=== PATIENT | female | born 1980 | race Caucasian/White ===

== ENCOUNTER 2019-08-10 00:29 | Emergency (ER) | payer MEDICAID ==
--- NOTE | 2019-08-10 01:21 | ED Physician Documentation ---
History of Present Illness - Stated complaint Stated Complaint: FAST HEART/HEARING THINGS - Chief complaint Chief Complaint: General - History obtained from History obtained from: Patient - History of Present Illness Timing: Today - Additonal information Additional information: 39-year-old female is visiting here from [place] has developed a rapid heart rate. She has clocked her heart rate at about 100 and she is uncertain why this is present. She has had a prior history of SVT with rapid rates up above 150. She is not experiencing that today. She denies any other specific symptoms. She does state that she has had anxiety previously that is caused raising her heart rate. She does state that she does not drink a lot of fluids and she suspects she might be dehydrated. Review of Systems Constitutional: denies: Fever Eyes: denies: Decreased vision Ears: denies: Ear pain Nose: denies: Rhinorrhea / runny nose, Congestion Throat: denies: Sore throat Cardiac: reports: Palpitations. denies: Chest pain / pressure Respiratory: denies: Dyspnea, Cough GI: denies: Abdominal Pain, Nausea, Vomiting : reports: Other (The patient does acknowledge urinary urgency.). denies: Dysuria, Frequency Skin: denies: Rash PD PAST MEDICAL HISTORY - Past Medical History Endocrine/Autoimmune: HyPOthyroidism Psych: Bipolar disorder - Past Surgical History Past Surgical History: Yes Ortho: Other - Present Medications Home Medications: Ambulatory Orders Medication Instructions Recorded Confirmed Divalproex Sodium [Depakote] 08/10/19 Levothyroxine [Synthroid] 08/10/19 Lurasidone HCl [Latuda] 08/10/19 buPROPion [Wellbutrin Sr] 08/10/19 - Allergies Allergies/Adverse Reactions: Allergies Allergy/AdvReac Type Severity Reaction Status Date / Time No Known Drug Allergies Allergy Verified 08/10/19 00:41 - Social History Does the pt smoke?: No Smoking Status: Never smoker PD ED PE NORMAL - Vitals Vital signs reviewed: Yes (Tachycardia to 106 mild hypertension) - General General: Alert and oriented X 3, No acute distress, Well developed/nourished - HEENT HEENT: Atraumatic, PERRL, EOMI - Neck Neck: Supple, no meningeal sign, No bony TTP - Cardiac Cardiac: RRR, No murmur - Respiratory Respiratory: No respiratory distress, Clear bilaterally - Abdomen Abdomen: Normal bowel sounds, Soft, Non tender, Non distended, No organomegaly - Back Back: No CVA TTP, No spinal TTP - Derm Derm: Normal color, Warm and dry, No rash - Extremities Extremities: No deformity, No edema - Neuro Neuro: Alert and oriented X 3, 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, No motor deficit, No sensory deficit, Normal speech Eye Opening: Spontaneous Motor: Obeys Commands Verbal: Oriented GCS Score: 15 - Psych Psych: Normal mood, Other (Affect is flat) Results - Vitals Vitals: Vital Signs - 24 hr 08/10/19 08/10/19 00:33 03:55 Temperature 36.4 C L 36.3 C L Heart Rate 106 H 71 Respiratory 18 20 Rate Blood Pressure 138/79 H 119/64 O2 Saturation 99 100 Oxygen O2 Source Room air - EKG (time done) 0045 Rate: Rate (enter#) (89) Rhythm: NSR Ischemia: Normal ST segments Compare to prior EKG: Old EKG unavailable Computer interpretation: Agree with computer - Labs Labs: Laboratory Tests 08/10/19 03:10 Urine Color YELLOW Urine Clarity CLEAR Urine pH 7.0 Ur Specific [place] 1.020 Urine Protein NEGATIVE Urine Glucose (UA) NEGATIVE Urine Ketones NEGATIVE Urine Occult Blood TRACE-INTA Urine Nitrite NEGATIVE Urine Bilirubin NEGATIVE Urine Urobilinogen 0.2 (NORMAL) Ur Leukocyte Esterase NEGATIVE Ur Microscopic Review NOT INDICATED Urine Culture Comments NOT INDICATED Urine HCG, Qual NEGATIVE Procedures - IVC sono (time) 0237 Bedside IVC sono: IVC measures (cm) (0.93), Dehydration (est 1-2 liter deficit) PD MEDICAL DECISION MAKING - ED course Complexity details: reviewed results, re-evaluated patient, considered dif ferential, d/w patient ED course: 39-year-old female with a sensation of racing heart has an elevated heart rate and she is dehydrated. She is not vomiting and is able to orally hydrate. She is given 2 glasses of water to drink and she is able to produce a urine specimen with specific gravity of 1.020. There is no evidence of infection. She is diagnosed with dehydration and discharged to home. Departure - Departure Disposition: 01 Home, Self Care Clinical Impression: Dehydration Condition: Stable Instructions: ED Dehydration Follow-Up: Your, doctor [Other] Discharge Date/Time: 08/10/19 04:09
[2019-08-10 03:21] LABS: BILIRUBIN,URINE NEGATIVE (NEGATIVE); GLUCOSE, URINE (UA) NEGATIVE (NEGATIVE); KETONES,URINE (UA) NEGATIVE (NEGATIVE); LEUKOCYTE ESTERASE, URINE NEGATIVE (NEGATIVE); NITRITE,URINE NEGATIVE (NEGATIVE); OCCULT BLOOD,URINE TRACE-INTA (NEGATIVE); PROTEIN,URINE NEGATIVE (NEGATIVE); UROBILINOGEN,URINE 0.2 (NORMAL) E.U./dL (NORMAL)
[2019-08-10 03:22] LABS: CLARITY,URINE CLEAR (CLEAR)
[2019-08-10 03:24] LABS: HCG UR QUAL NEGATIVE
[2019-08-10 03:56] VITALS: BP 119/64
== END 2019-08-10 04:09 | disposition home or self-care (01) ==
LOC: ED 00:29
DX: E86.0 Dehydration (principal); R00.2 Palpitations
CPT/HCPCS: 81001; 81003; 81025; 87086; 93005; 99283

== ENCOUNTER 2019-08-21 08:51 | Emergency (ER) | payer MEDICAID ==
--- NOTE | 2019-08-21 09:09 | ED Physician Documentation ---
History of Present Illness - Stated complaint Stated Complaint: CHEST PX - Chief complaint Chief Complaint: Cardiac - Additonal information Additional information: This is a 39-year-old female who presents with left-sided chest discomfort. Patient states he has a history of SVT, and she may also have a history of cardiomyopathy which was brief and resolved, [facility], but she does not know the name of her alignment specialist. She states that for the last 12 hours she has had left-sided chest discomfort and a feeling that her heart is racing intermittently. She had similar symptoms on [place] and she was found to be dehydrated and in normal sinus rhythm, and she was discharged in her symptoms subsequently resolved. She denies any leg swelling or or redness, she denies a history of diagnosed blood clots. She does state that her right leg felt a bit "funny" to her, and on specific questioning about blood clot she states that she is a bit anxious that she may have one in her right leg. No reported history of PA. She does not know the results of her most recent echocardiogram, does not know what her ejection fraction is. Review of Systems Constitutional: denies: Fever Nose: denies: Rhinorrhea / runny nose Throat: denies: Dental pain / toothache Cardiac: reports: Chest pain / pressure Respiratory: denies: Dyspnea GI: denies: Abdominal Pain Skin: denies: Rash Musculoskeletal: denies: Neck pain Neurologic: denies: Generalized weakness Immunocompromised: denies: Immunocompromised PD PAST MEDICAL HISTORY - Past Medical History Cardiovascular: Congestive heart failure, Arrhythmia Endocrine/Autoimmune: HyPOthyroidism Psych: Bipolar disorder - Past Surgical History Past Surgical History: Yes Ortho: Other - Present Medications Home Medications: Ambulatory Orders Medication Instructions Recorded Confirmed Divalproex Sodium [Depakote] 08/10/19 Levothyroxine [Synthroid] 08/10/19 Lurasidone HCl [Latuda] 08/10/19 buPROPion [Wellbutrin Sr] 08/10/19 - Allergies Allergies/Adverse Reactions: Allergies Allergy/AdvReac Type Severity Reaction Status Date / Time No Known Drug Allergies Allergy Verified 08/21/19 09:03 - Living Situation Living Situation: reports: With family - Social History Does the pt smoke?: No Smoking Status: Never smoker PD ED PE NORMAL - Vitals Vital signs reviewed: Yes - General General: Alert and oriented X 3, No acute distress - HEENT HEENT: Atraumatic, PERRL - Neck Neck: Supple, no meningeal sign - Cardiac Cardiac: No murmur, Other (Mild tachycardia at 106 on my examination, no murmur, regular rhythm) - Respiratory Respiratory: No respiratory distress, Clear bilaterally - Abdomen Abdomen: Normal bowel sounds, Soft, Non tender, Non distended - Derm Derm: Warm and dry - Extremities Extremities: No deformity, No tenderness to palpate, No edema, No calf tenderness / cord - Neuro Neuro: Alert and oriented X 3 - Psych Psych: Normal mood, Normal affect Results - Vitals Vitals: Vital Signs - 24 hr 08/21/19 08/21/19 08/21/19 08:57 09:26 10:23 Temperature 36.5 C Heart Rate 112 H 96 91 Respiratory 18 16 11 L Rate Blood Pressure 136/97 H 119/70 O2 Saturation 97 99 100 Oxygen O2 Source Room air - EKG (time done) 8:58 Other comments: Other comments (Rate 103, rhythm sinus tachycardia, there is slight T wave flattening in V5 V6, no ST segment elevation, no significant change from 08/10/2018) - Labs Labs: Laboratory Tests 08/21/19 08/21/19 08/21/19 09:15 09:15 09:15 WBC 8.7 RBC 4.14 L Hgb 13.0 Hct 38.8 MCV 93.7 MCH 31.4 H MCHC 33.5 RDW 12.3 Plt Count 284 MPV 10.2 Neut # (Auto) 4.9 Lymph # (Auto) 2.9 [place] # (Auto) 0.7 Eos # (Auto) 0.1 Baso # (Auto) 0.1 Absolute Nucleated RBC 0.00 Nucleated RBC % 0.0 D-Dimer < 200.0 L Sodium 137 Potassium 3.6 Chloride 102 Carbon Dioxide 27 Anion Gap 8.0 BUN 11 Creatinine 1.0 Estimated GFR (MDRD) 62 L Glucose 110 H Calcium 9.4 Total Bilirubin 0.8 AST 24 ALT 19 Alkaline Phosphatase 43 Troponin I High Sens B-Natriuretic Peptide Total Protein 8.0 Albumin 4.3 Globulin 3.7 Albumin/Globulin Ratio 1.2 Lipase 27 TSH Urine Color Urine Clarity Urine pH Ur Specific [place] Urine Protein Urine Glucose (UA) Urine Ketones Urine Occult Blood Urine Nitrite Urine Bilirubin Urine Urobilinogen Ur Leukocyte Esterase Urine RBC Urine WBC Ur Squamous Epith Cells Urine Bacteria Ur Microscopic Review Urine Culture Comments Urine HCG, Qual 08/21/19 08/21/19 08/21/19 09:15 09:15 09:15 WBC RBC Hgb Hct MCV MCH MCHC RDW Plt Count MPV Neut # (Auto) Lymph # (Auto) [place] # (Auto) Eos # (Auto) Baso # (Auto) Absolute Nucleated RBC Nucleated RBC % D-Dimer Sodium Potassium Chloride Carbon Dioxide Anion Gap BUN Creatinine Estimated GFR (MDRD) Glucose Calcium Total Bilirubin AST ALT Alkaline Phosphatase Troponin I High Sens < 2.3 L B-Natriuretic Peptide 8 Total Protein Albumin Globulin Albumin/Globulin Ratio Lipase TSH 1.28 Urine Color Urine Clarity Urine pH Ur Specific [place] Urine Protein Urine Glucose (UA) Urine Ketones Urine Occult Blood Urine Nitrite Urine Bilirubin Urine Urobilinogen Ur Leukocyte Esterase Urine RBC Urine WBC Ur Squamous Epith Cells Urine Bacteria Ur Microscopic Review Urine Culture Comments Urine HCG, Qual 08/21/19 09:15 WBC RBC Hgb Hct MCV MCH MCHC RDW Plt Count MPV Neut # (Auto) Lymph # (Auto) [place] # (Auto) Eos # (Auto) Baso # (Auto) Absolute Nucleated RBC Nucleated RBC % D-Dimer Sodium Potassium Chloride Carbon Dioxide Anion Gap BUN Creatinine Estimated GFR (MDRD) Glucose Calcium Total Bilirubin AST ALT Alkaline Phosphatase Troponin I High Sens B-Natriuretic Peptide Total Protein Albumin Globulin Albumin/Globulin Ratio Lipase TSH Urine Color YELLOW Urine Clarity HAZY Urine pH 5.5 Ur Specific [place] 1.010 Urine Protein NEGATIVE Urine Glucose (UA) NEGATIVE Urine Ketones NEGATIVE Urine Occult Blood MODERATE H Urine Nitrite NEGATIVE Urine Bilirubin NEGATIVE Urine Urobilinogen 0.2 (NORMAL) Ur Leukocyte Esterase NEGATIVE Urine RBC 6-10 H Urine WBC 0-3 Ur Squamous Epith Cells MANY Squamous H Urine Bacteria Moderate H Ur Microscopic Review INDICATED Urine Culture Comments NOT INDICATED Urine HCG, Qual NEGATIVE - Rads (name of study) Chest XR Radiology: Other (No acute cardiopulmonary abnormality) PD MEDICAL DECISION MAKING - ED course Complexity details: considered differential (ACS, dysrhythmia, musculoskeletal pain, PE, pneumonia, pneumothorax, pleural effusion) ED course: On arrival patient is mildly tachycardic, she is in a sinus rhythm. Her EKG appears unchanged from prior EKG on August 10. She is low risk for pulmonary embolism without any objective signs of DVT and no history of PE, but given her tachycardia and her chest pain d-dimer was obtained and is negative, making DVT and PE extraordinarily unlikely. Her tachycardia also spontaneously resolved and oxygen saturation is been excellent throughout her stay. Her CBC is unremarkable, her abdominal panel is also unremarkable and her troponin is negative. Given she has had persistent symptoms for 12 hours a single high- sensitivity troponin is sufficient. ACS is extremely unlikely given this lab finding, her history, and unchanged EKG. Her x-ray is unremarkable. I discussed these results with the patient and recommend that she follow closely with her primary care provider as well as her alignment specialist. I reviewed return precautions and patient was discharged home in good condition. Departure - Departure Disposition: 01 Home, Self Care Clinical Impression: Chest pain Qualifiers: Chest pain type: unspecified Qualified Code(s): R07.9 - Chest pain, unspecified Condition: Good Instructions: ED Chest Pain Atypical Unkn Cause Follow-Up: CLOVER MENDIOLA MD [Primary Care Provider] - Comments: Your labs, EKG, and x-ray today are reassuring, and I do not see an obvious cause of your chest discomfort. Please follow-up with your alignment specialist and your primary care provider. If you are developing worsening symptoms or new concerning symptoms please return to the emergency department
[2019-08-21 09:21] LABS: BASOPHILS # (AUTO) 0.1 10^3/uL (0.0-0.1); BASOPHILS % (AUTO) 0.6 %; EOSINOPHILS # (AUTO) 0.1 10^3/uL (0.0-0.7); EOSINOPHILS % (AUTO) 0.6 %; LYMPHOCYTES # (AUTO) 2.9 10^3/uL (1.5-3.5); LYMPHOCYTES % (AUTO) 33.4 %; MEAN CORPUSCULAR HEMOGLOBIN 31.4 pg (27.0-31.0); MEAN CORPUSCULAR HGB CONC 33.5 g/dL (32.0-36.0); MEAN CORPUSCULAR VOLUME 93.7 fL (81.0-99.0); MEAN PLATELET VOLUME 10.2 fL (7.9-10.8); MONOCYTES # (AUTO) 0.7 10^3/uL (0.0-1.0); MONOCYTES % (AUTO) 8.3 %; NEUTROPHILS # (AUTO) 4.9 10^3/uL (1.5-6.6); NEUTROPHILS % (AUTO) 56.8 %; PLT - PLATELET COUNT 284 10^3/uL (130-450); RED BLOOD COUNT 4.14 10^6/uL (4.20-5.40); RED CELL DISTRIBUTION WIDTH 12.3 % (12.0-15.0); WHITE BLOOD COUNT 8.7 x10^3/uL (4.8-10.8)
[2019-08-21 09:34] LABS: ALBUMIN 4.3 g/dL (3.2-5.5); ALBUMIN/GLOBULIN RATIO 1.2 (1.0-2.2); BILIRUBIN,TOTAL 0.8 mg/dL (0.2-1.0); BILIRUBIN,URINE NEGATIVE (NEGATIVE); CALCIUM 9.4 mg/dL (8.5-10.3); GLUCOSE, URINE (UA) NEGATIVE (NEGATIVE); KETONES,URINE (UA) NEGATIVE (NEGATIVE); LEUKOCYTE ESTERASE, URINE NEGATIVE (NEGATIVE); NITRITE,URINE NEGATIVE (NEGATIVE); OCCULT BLOOD,URINE MODERATE (NEGATIVE); PH,URINE 5.5 PH (5.0-7.5); PROTEIN,URINE NEGATIVE (NEGATIVE); UROBILINOGEN,URINE 0.2 (NORMAL) E.U./dL (NORMAL)
[2019-08-21 09:46] LABS: CLARITY,URINE HAZY (CLEAR); HCG UR QUAL NEGATIVE
[2019-08-21 09:54] LABS: BACTERIA,URINE Moderate /HPF (None Seen); SQUAMOUS EPITHELIAL CELL,UR MANY Squamous (<= Few)
[2019-08-21 10:24] VITALS: BP 119/70
--- NOTE | 2019-08-21 10:30 | XRAY Report ---
Reason: L chest discomfort Procedure Date: 08/21/2019 Accession Number: [id number] / [id number] Procedure: XR - Chest 2 View X-Ray CPT Code: 72005 Final Report FULL RESULT: EXAM: CHEST RADIOGRAPHY EXAM DATE: 08/21/2019 08:20 AM. CLINICAL HISTORY: L chest discomfort. COMPARISON: CXR 2V 07/26/2006 1:30 AM. TECHNIQUE: 2 views. FINDINGS: Lungs/Pleura: No focal opacities evident. No pleural effusion. No pneumothorax. Normal volumes. Mediastinum: Heart and mediastinal contours are unremarkable. Other: None. IMPRESSION: Normal 2-view chest radiography. [facility]
[2019-08-21 10:51] LABS: HCG,QUALITATIVE BLOOD NEGATIVE
== END 2019-08-21 10:59 | disposition home or self-care (01) ==
LOC: ED 08:51
DX: R07.9 Chest pain, unspecified (principal); R00.0 Tachycardia, unspecified; Z86.79 Personal history of other diseases of the circulatory system
CPT/HCPCS: 36415; 71046; 80053; 81001; 81003; 81025; 83690; 83880; 84443; 84484; 84703; 85025; 85379; 87086; 93005; 99284